=== PATIENT | female | born 1945 | race Caucasian/White ===

== ENCOUNTER 2019-09-11 05:01 | Inpatient (IN) ==
--- NOTE | 2019-08-22 14:50 | PAT Medication Instructions ---
Medication Instructions Date of Service August 22, 2019 Home Medications fenofibrate 160 mg PO QAM levothyroxine 50 mcg PO QAM lisinopril 40 mg PO QPM meloxicam 15 mg PO DAILY PRN multivitamin 1 tab PO QAM paroxetine HCl 20 mg PO QPM vitamins A,C,R-xbhv-hqvyze [PreserVision AREDS] 1 tab PO QPM ASK your surgeon for instructions meloxicam 15 mg PO DAILY PRN STOP taking 2 weeks before surgery If surgery is within 2 weeks, stop taking as soon as possible. vitamins A,C,J-nyov-kzufde [PreserVision AREDS] 1 tab PO QPM STOP taking 48 hours before surgery fenofibrate 160 mg PO QAM DO NOT take the morning of surgery multivitamin 1 tab PO QAM Take morning of surgery With a small sip of water, OTHERWISE NOTHING TO EAT OR DRINK AFTER MIDNIGHT: levothyroxine 50 mcg PO QAM Take evening before surgery lisinopril 40 mg PO QPM paroxetine HCl 20 mg PO QPM Other Notes If you have any questions please call us at [phone] or [phone] or [phone] or [phone]
--- NOTE | 2019-08-23 14:53 | Anesthesiology Consultation ---
Date of Service August 23, 2019 Assessment & Plan (1) Encounter for pre-operative examination: Patient has had issues in the past with memory difficulties after anesthesia, including sedation procedures like colonoscopies. Requesting as little anesthesia as possible, open to the idea of no sedation at all in combo with SAB. COVID Status: As of 08/21 nurse assessment, patient denies travel to endemic area, known exposure/sick contacts, or symptoms of COVID19. Preoperative COVID19 testing to be completed prior to surgery. Chart Review Chart Review: Acceptable Risk for Surgery and Patient seen in Pre Admission Testing Teaching & Discussion Instructed NPO after midnight before surgery, except medications with 15 cc of water. Medication instructions provided according to the PAT guidelines. History Surgery Operation Date: 09/11/19 09:40 Proposed Procedures p Left Anterior Total Hip Arthroplasty - Alhaji Yarbrough DO Height/Weight Height: 5 ft 2 in Weight: 65.8 kg Allergies Allergy/AdvReac Type Severity Reaction Status Date / Time No Known Allergies Allergy Unknown Verified 08/16/19 08:40 Medications Home Medications Medication Instructions Recorded Confirmed Last Taken fenofibrate 160 mg PO QAM 08/16/19 08/16/19 Unknown levothyroxine 50 mcg PO QAM 08/16/19 08/16/19 Unknown lisinopril 40 mg PO QPM 08/16/19 08/16/19 Unknown meloxicam 15 mg PO DAILY PRN 08/16/19 08/16/19 Unknown multivitamin 1 tab PO QAM 08/16/19 08/16/19 Unknown paroxetine HCl 20 mg PO QPM 08/16/19 08/16/19 Unknown vitamins A,C,K-vrrv-cclziq 1 tab PO QPM 08/16/19 08/16/19 Unknown [PreserVision AREDS] Past Medical History Medical History Anxiety Hyperlipidemia Hypertension Hypothyroidism Memory deficit Has occurred post-op and lasts for several months after. Word finding difficulty, lapses in memory. Mild heartburn Exercise / Class Metabolic Activity II 4-5 Yardwork/Stairs/Walk up hill (Denies CP or SOB with 1 FOS but not doing often 2/2 hip pain) Past Surgical History Surgical History H/O vaginal surgery History of anesthesia reaction MEMORY ISSUES POST OP PER PT History of colonoscopy History of revision of total replacement of left knee joint X 2-WOUND DEBRIDEMENTS History of total hip arthroplasty RIGHT-2008 History of total knee replacement LEFT 2-3 YRS AGO Past Anesthesia History No Family Hx of Anesthesia Complications Memory issues have been exacerbated by anesthesia. History of PONV No Hx of PONV and No Hx of Motion Sickness Social History Smoking Status: Never smoker Do You Dip or Chew Tobacco: No Hx Alcohol Use: Yes Alcohol type: wine alcohol intake frequency: a few times a week Hx Substance Use: No Review of Systems Pt denies any recent chest pain, shortness of breath, palpitations, cough, fever or URI. Physical Exam Vital Signs BP: 162/62 P: 70bpm SPO2: 98% RA T: 98.5 F R: 12 ENMT Mouth: + dentures and + edentulous Thyromental Distance: > or= 3.5 Finger Breadths (3.5) Mallampati Class: I Neck normal visual inspection; neck extension not limited Respiratory normal respiratory effort Auscultation: lungs clear to auscultation bilaterally Cardiovascular Rate/Rhythm: regular rate and regular rhythm Heart Sounds: no murmur Extremities: no edema Testing Laboratory Results 08/23/19 15:06 08/23/19 15:06 PT 11.3 Seconds (9.0-12.0) 08/23/19 15:06 INR 1.1 (0.9-1.1) 08/23/19 15:06 APTT 26.5 Seconds (21.0-31.0) 08/23/19 15:06 Hemoglobin A1c 5.6 % (4.5-5.6) 08/23/19 15:06 Urine Color Yellow 08/23/19 15:06 Urine Appearance Clear (Clear) 08/23/19 15:06 Urine pH 7.5 (4.5-7.5) 08/23/19 15:06 Ur Specific [place] 1.014 (1.000-1.030) 08/23/19 15:06 Urine Protein Negative (Negative) 08/23/19 15:06 Urine Glucose (UA) Negative (Negative) 08/23/19 15:06 Urine Ketones Negative (Negative) 08/23/19 15:06 Urine Nitrite Negative (Negative) 08/23/19 15:06 Ur Leukocyte Esterase Negative (Negative) 08/23/19 15:06 Blood Type A Negative 08/23/19 15:06 Antibody Screen POSITIVE A 08/23/19 15:06 *Spoke to Alba at [facility] re: anti-D antibody. Patient does not need any further workup or special instructions for DOS. Electrocardiogram Date: 08/23/19 Findings: + NSR @ (64bpm) Nonspecific ST abnormality. No significant change from 07/30/15. Chest X-Ray Date: 08/23/19 Findings: + NAD
--- NOTE | 2019-08-23 15:43 | XRay Report ---
XR chest Pre-admission PA/Lat HISTORY: Preop. COMPARISON: None. FINDINGS: The lungs are clear. Cardiac silhouette is normal in size. No pleural effusions. No pneumot horax. IMPRESSION: No acute process. ACT 112: Negative or not required by law. Electronically signed by: Chetan Real M.D. 08/23/2019 3:42 PM
[2019-08-23 16:02] LABS: Hematocrit (blood only) 38.7 % (37-47); Hemoglobin 12.5 g/dL (12.0-16.0); Mean Corpuscular Hgb Conc 32.3 g/dL (32-36); Mean Corpuscular Volume 92.8 fL (80-100); Mean Platelet Volume 10.8 fL (7.4-10.4); Platelet Count 240 K/uL (130-400); RDW Coefficient of Variation 12.9 % (11.5-14.5); RDW Standard Deviation 43.5 fL (36.4-46.3); Red Blood Count 4.17 M/uL (4.2-5.4); White Blood Count 4.91 K/uL (4.8-10.8)
[2019-08-23 16:09] LABS: Albumin Level 4.2 gm/dl (3.4-5.0); BUN Creatinine Ratio 17.2 (10-20); Calcium 9.7 mg/dl (8.5-10.1); Creatinine Clr Calc Pharmacy 41.6 ml/min; Est GFR (African American) 60.9; Est GFR (Non-African American) 52.5; Potassium 3.5 mmol/L (3.5-5.1)
[2019-08-23 16:13] LABS: Appearance Urine Clear (Clear); Bilirubin Urine Negative (Negative); Blood Urine Negative (Negative); Color Urine Yellow; Glucose Urine UA Negative (Negative); INR 1.1 (0.9-1.1); Ketones Urine Negative (Negative); Leukocyte Esterase Urine Negative (Negative); Nitrite Urine Negative (Negative); Partial Thromboplastin Ratio 0.9; Partial Thromboplastin Time 26.5 Seconds (21.0-31.0); Protein Urine Negative (Negative); Prothrombin Time 11.3 Seconds (9.0-12.0); Specific Gravity Urine 1.014 (1.000-1.030); Urobilinogen Urine Negative (Negative); pH Urine 7.5 (4.5-7.5)
[2019-08-23 16:21] LABS: Basophils # (auto) 0.02 K/uL (0-0.2); Basophils % (auto) 0.4 %; Eosinophils # (auto) 0.16 K/uL (0-0.5); Eosinophils % (auto) 3.3 %; Lymphocytes # (auto) 2.47 K/uL (1.2-3.4); Lymphocytes % (auto) 50.3 %; Monocytes # (auto) 0.35 K/uL (0.11-0.59); Monocytes % (auto) 7.1 %; Neutrophils # (auto) 1.91 K/uL (1.4-6.5); Neutrophils % (auto) 38.9 %
--- NOTE | 2019-08-24 06:06 | Electrocardiogram Report ---
Test Reason : Blood Pressure : / mmHG Vent. Rate : 064 BPM Atrial Rate : 064 BPM P-R Int : 158 ms QRS Dur : 086 ms QT Int : 426 ms P-R-T Axes : 067 068 043 degrees QTc Int : 439 ms Normal sinus rhythm Nonspecific ST abnormality When compared with ECG of 30-JUL-2015 14:27, No significant change was found Confirmed by Dane Germain ([id number]) on 08/24/2019 6:05:38 AM Referred By: Alhaji Yarbrough Confirmed By:Dane Germain
[2019-08-24 06:09] LABS: Estimated Average Glucose 114 mg/dl; Hemoglobin A1C 5.6 % (4.5-5.6)
--- NOTE | 2019-09-10 11:26 | History & Physical Report ---
Date of Service September 11, 2019 Assessment & Plan (1) Degenerative joint disease of left hip: I have indicated the patient for left anterior total hip replacement. The risks, benefits and complications of surgery were explained to the patient which include but not limited to infection, acute blood loss, DVT/PE, injury to nerves, vessels, bone, soft tissue, arthrofibrosis, chronic pain, failure of the prosthesis, hip dislocation, leg length discrepancy, need for additional surgery, cardiac and pulmonary events and . The patient wished to proceed with surgery and informed consent was obtained at this time. We will plan for 81mg ASA BID post-operatively for DVT prophylaxis. Upon discharge the patient will be discharged home with home health services. Appropriate clearances by PCP were obtained. History of Present Illness Chief Complaint: Left hip pain/djd Primary Care Provider: Sabino Anna MD The patient is a 73 year old female who presents with complaints of severe left hip pain and DJD. The patient has failed outpatient conservative treatments to this point which included NSAIDs, IA corticosteroid injection, PT and a home exercise program. The patient's pain and limited function have progressed to the point where they severely hinder their activities of daily living and they no longer tolerate exercise programs. They are requesting to proceed with total hip replacement surgery. Allergies Allergy/AdvReac Type Severity Reaction Status Date / Time No Known Allergies Allergy Unknown Verified 08/16/19 08:40 Home Medications Home Medications Medication Instructions Recorded Confirmed Type fenofibrate 160 mg PO QAM 08/16/19 08/16/19 History levothyroxine 50 mcg PO QAM 08/16/19 08/16/19 History lisinopril 40 mg PO QPM 08/16/19 08/16/19 History meloxicam 15 mg PO DAILY PRN 08/16/19 08/16/19 History multivitamin 1 tab PO QAM 08/16/19 08/16/19 History paroxetine HCl 20 mg PO QPM 08/16/19 08/16/19 History vitamins A,C,E-hrpr-wximhm 1 tab PO QPM 08/16/19 08/16/19 History [PreserVision AREDS] Past Med/Surg History Medical History Anxiety Hyperlipidemia Hypertension Hypothyroidism Memory deficit Has occurred post-op and lasts for several months after. Word finding difficulty, lapses in memory. Mild heartburn Surgical History H/O vaginal surgery History of anesthesia reaction MEMORY ISSUES POST OP PER PT History of colonoscopy History of revision of total replacement of left knee joint X 2-WOUND DEBRIDEMENTS History of total hip arthroplasty RIGHT-2007 History of total knee replacement LEFT 2-3 YRS AGO Social History Preferred Language: Micronesian Communication Ability: Effective Tentering Machine Feeder Required: No Beliefs That Will Affect Care: None Current Living Situation: Spouse Other Information That Helps Us Care for You: No Feels Safe at Home: Yes Safety Concerns: Feels Safe At This Time Smoking Status: Never smoker Do You Dip or Chew Tobacco: No ; Second Hand Exposure: No ; Hx Alcohol Use: Yes Alcohol type: wine Hx Substance Use: No Review of Systems Review of Systems: All systems reviewed & are unremarkable except as noted in HPI & below Constitutional: as per Subjective / HPI Physical Exam Physical Exam: LLE NVSI +EHL/FHL/TA/GS SILT grossly, +2 DP pulse, compartments soft NT, limited painful ROM of the hip, antalgic gait. Constitutional: WD/WN, vitals as above Eyes: PERRL, conjunctivae normal, anicteric sclerae ENMT: external ear and nose normal, oropharynx normal Neck: trachea midline, no thyromegaly Respiratory: normal respiratory effort, lungs clear to auscultation Cardiovascular: RRR, no murmur, no edema Gastrointestinal (Abdomen): normal bowel sounds, soft, nontender, no hepatosplenomegaly Musculoskeletal: no cyanosis or clubbing, extremities motor strength 5/5 Skin: no rashes, warm and dry Neurologic: patellar DTR's 2+ bilat, sensation intact Psychiatric: A+Ox3, euthymic affect Lymphatic: no cervical or axillary lymphadenopathy Results & Data Results & Data ([place]) Diagnostic Findings Multiple views of the hip demonstrates severe DJD with complete loss of the joint space. +osteophytes, +sclerosis, +subchondral cysts.
[2019-09-11] MEDS ORDERED: dexAMETHasone 4 MG TAB PO SCH (06:00)
[2019-09-11] MEDS ORDERED: ROPIVACAINE 0.5% HCL/PF 150 MG, BUPIVACAINE 0.5% MPF 30 ML, EPINEPHrine 30MG/30ML (OR U... INSTIL SCH (06:00)
[2019-09-11] MEDS ORDERED: CEFAZOLIN 1000MG 1,000 MG/7.5 ML SYR IV SCH (06:00)
[2019-09-11] MEDS ORDERED: CeleBREX 200 MG CAP PO SCH (06:00)
[2019-09-11] MEDS ORDERED: ACETAMINOPHEN 500 MG TAB PO SCH (06:00)
[2019-09-11] MEDS ORDERED: FAMOTIDINE 20 MG TAB PO SCH (06:00)
[2019-09-11] MEDS ORDERED: LR 500ML BOLUS, THEN 15ML/HR IV SCH (06:00)
[2019-09-11] MEDS ORDERED: TRANEXAMIC ACID / 0.7% NACL 1,000 MG/100 ML BAG IV SCH ×2 (06:00)
[2019-09-11] MEDS ORDERED: METOCLOPRAMIDE HCL 10 MG TABLET PO SCH (06:00)
[2019-09-11] MEDS ORDERED: BUPIVACAINE 0.5 % 5 MG/1 ML PF 10ML VIAL ONE (06:32)
[2019-09-11] MEDS ORDERED: MIDAZOLAM HCL 1 MG/ML 2ML VIAL ONE (06:40)
[2019-09-11] MEDS ORDERED: fentaNYL citrate 100 MCG/2 ML VIAL ONE (06:40)
--- NOTE | 2019-09-11 06:44 | History & Physical Bridge Note ---
Date of Service September 11, 2019 History & Physical Bridge Note I have examined the patient, reviewed the History & Physical and in the interval since the performance of the History & Physical I have noted the following changes of clinical significance: no changes noted
[2019-09-11] MEDS ORDERED: BACITRACIN INJ 50,000 UNIT VIAL ONE (07:00)
[2019-09-11] MEDS ORDERED: ORTHO JOINT ANESTHETIC ONE (07:00)
[2019-09-11] MEDS ORDERED: ONDANSETRON INJ 2 MG/ML 2 ML VIAL IV PRN ×2 (07:29→09:58)
[2019-09-11] MEDS ORDERED: HYDROmorphone INJ 1 MG/ML SYRINGE IV PRN (07:29)
[2019-09-11] MEDS ORDERED: fentaNYL citrate 100 MCG/2 ML VIAL IV PRN (07:29)
[2019-09-11] MEDS ORDERED: ATROPINE SULFATE 0.1 MG/ML 10ML SYR IV PRN (07:29)
[2019-09-11] MEDS ORDERED: ePHEDrine sulfate 50 MG/ML AMP IV PRN (07:29)
[2019-09-11] MEDS ORDERED: DEXAMETHASONE SOD INJ 4 MG/ML VIAL ONE (07:47)
[2019-09-11] MEDS ORDERED: ONDANSETRON INJ 2 MG/ML 2 ML VIAL ONE (07:47)
--- NOTE | 2019-09-11 08:52 | Fluoroscopy Report ---
FL hip LT 1V CLINICAL HISTORY: LT ANTERIOR TOTAL COMPARISON STUDY: Pelvis radiograph August 26, 2007. FLUOROSCOPY TIME: 49 seconds. FLUOROSCOPIC IMAGES: 2 FINDINGS: These images demonstrate anatomic alignment of the total left arthroplasty. The hardware is intact. No fracture is visualized. Right hip arthroplasty is noted. IMPRESSION: Fluoroscopy provided during total left hip arthroplasty. ACT 112: Negative or not required by law. Electronically signed by: Sharath Vela M.D. 09/11/2019 8:50 AM
--- NOTE | 2019-09-11 08:52 | Post Operative Brief Note ---
Immediate Post Op Note v1 Date of Surgery September 11, 2019 Pre & Post Diagnosis Operation Date: 09/11/19 07:00 Pre-Op Diagnosis: Left Hip Degenerative Joint Disease Post-Op Diagnosis: Left Hip Degenerative Joint Disease I identified the patient and participated in the time-out.: Yes Procedure Operation Date: 09/11/19 07:00 Actual Procedures p Left Anterior Total Hip Arthroplasty(Left) - Alhaji Yarbrough DO Surgeon Alhaji Yarbrough DO Proof Load Mechanic Brendon Logan Estimated Blood Loss 135 Findings Consistent with Post-Op Diagnosis Fluids 1100 cc LR Specimens femoral head Anesthesia Type Spinal MAC Complications none Disposition Disposition: Recovery Room Overlapping Procedure I was present for: the critical portions of procedure. I was immediately available: during the entire case. Back up surgeon: was not required during procedure.
--- NOTE | 2019-09-11 08:54 | Operative Report ---
Post Operative Report Pre & Post Diagnosis Operation Date: 09/11/19 07:00 Pre-Op Diagnosis: Left Hip Degenerative Joint Disease Post-Op Diagnosis: Left Hip Degenerative Joint Disease I identified the patient and participated in the time-out.: Yes Procedure Operation Date: 09/11/19 07:00 Actual Procedures p Left Anterior Total Hip Arthroplasty(Left) - Alhaji Yarbrough DO Surgeon Alhaji Yarbrough DO Television Engineer Brendon Logan Estimated Blood Loss 135 Findings Consistent with Post-Op Diagnosis Fluids 1100 cc LR Specimens femoral head Anesthesia Type Spinal MAC Complications none Disposition Disposition: Recovery Room Indications The patient is a 73-year-old female who presents with severe progressive left hip DJD who has failed outpatient conservative treatments. I indicated the patient for a anterior total hip replacement and the risks and benefits were explained in detail which include but not limited to infection, bleeding, blood clot, damage to surrounding bone, nerves, vessels, soft tissue, hip dislocation, failure of the prosthesis, leg length discrepancy, need for additional surgery and . The patient agreed to proceed with replacement of the hip and informed consent was obtained. Appropriate clearances were obtained. Description of Procedure COMPONENTS USED: [employer]2gethe[employer] hip system: Acetabulum size 48, femur size 2 high offset, femoral head 32-3, liner 4832, acetabular screw 251. DESCRIPTION OF PROCEDURE: Following satisfactory spinal anesthesia, the patient was placed supine on the OR table. The right leg was placed in the well leg cohn and the left leg in the traction device. The left leg was prepared with ChloraPrep and draped sterilely. A surgical timeout was performed, patient identified and site mariza verified. Appropriate antibiotics were given. A standard anterior approach in the interval between the sartorius and tensor muscles was performed. Dissection was carried down through subcutaneous tissues. Electrocautery was utilized for hemostasis. Circumflex femoral vessels were identified, tied and ligated. The anterior capsular fat pad was removed and the capsulotomy was performed revealing the arthritic femoral neck and head. A femoral neck cut was made with reciprocating saw and the bone fragments removed. The acetabular self-retraining retractor was placed. Acetabular reaming was completed under fluoroscopic guidance, a 48 shell was impacted into an anatomic position and secured with a dome screw. Local anesthetic was placed and following irrigation, the polyethylene liner was placed. The femur was placed into position of external rotation, extension and adduction. Femoral canal was prepared up to the size to high offset. Trial reduction with a -3 neck length head showed good soft tissue tension, leg lengths restored, and good fit and fill of the proximal canal using fluoroscopic landmarks. The hip was dislocated. The trial component was removed. The final implant was placed. The hip was irrigated with sterile saline solution and reduced. A Betadine soak was performed. After 3 minutes, the hip was once more irrigated with copious sterile saline solution with bacitracin. Steffany-incisional soft tissue was injected utilizing [place] [employer] which includes a combination of Ropivicaine 0.5% 150mg, Bupivicaine 0.5%/Epinephrine 1:200,000 30ml, Toradol 30mg, Dexamethasone 4mg, Ketamine 10mg, Clonidine 100mcg and NSS 30ml solution. The capsule was then closed with 1-0 Vicryl interrupted figure of eight sutures. The fascia was closed with a running suture of #1 Vicryl, the subcutaneous tissues with 2-0 Vicryl and the skin was closed with najma. A sterile dry dressing was applied which included Monica incisional VAC. The patient tolerated the procedure well and was transported to PACU in stable condition. Due to the complex nature of the procedure, the entire surgery was performed with the operational assistance of Brendon Del Rio PA-C. The evaluation assistant, under direct supervision, was involved in the actual performance of all aspects of the surgical procedure including patient positioning, hemostasis, tissue retraction, instrument management and wound closure. I attest to the content of the Intraoperative Record and any orders documented therein. Any exceptions are noted below.
--- NOTE | 2019-09-11 09:49 | XRay Report ---
XR hip 1V LT w pelvis CLINICAL HISTORY: Total left hip arthroplasty. COMPARISON: Pelvis radiograph August 26, 2007. FINDINGS: Alignment of the total left hip arthroplasty is anatomic. There is no fracture or unexpect ed radiopaque foreign body. There is an acetabular screw. Skin najma are present. Right hip arthrop lasty is noted. IMPRESSION: Expected findings following total left hip arthroplasty. ACT 112: Negative or not required by law. Electronically signed by: Sharath Vela M.D. 09/11/2019 9:48 AM
[2019-09-11] MEDS ORDERED: NALOXONE HCL 0.4 MG/1 ML VIAL/CARP IV PRN (09:58)
[2019-09-11] MEDS ORDERED: METOCLOPRAMIDE HCL INJ 5 MG/ML 2 ML VIAL IV PRN (09:58)
[2019-09-11] MEDS ORDERED: bisacodyL 10 MG SUPP PR PRN (09:58)
[2019-09-11] MEDS ORDERED: MAGNESIUM HYDROXIDE SUSP 30 ML UDC PO PRN (09:58)
[2019-09-11] MEDS ORDERED: HYDROmorphone INJ 0.5 MG/0.5 ML SYR IV PRN (09:58)
--- NOTE | 2019-09-11 10:13 | Anesthesiology Progress Note ---
Date of Service September 11, 2019 Anesthesia Post Procedure Vital Signs Vital Signs: Temp Pulse Pulse Resp BP Pulse Ox 09/11/19 09:30 36.4 C L 62 16 132/60 96 09/11/19 09:20 58 L 16 126/51 L 100 09/11/19 09:11 36.2 C L 69 16 117/50 L 96 09/11/19 05:36 36.8 C 56 L 18 183/66 H 99 Transfer of Care Handoff Completed per policy Notes Mental Status: alert / awake / arousable and participated in evaluation Patient Amnestic to Procedure: Yes Nausea / Vomiting: adequately controlled Pain: adequately controlled Airway Patency, RR, SpO2: stable & adequate BP & HR: stable & adequate Hydration State: stable & adequate Neuraxial Anesthesia: was administered and sensory block is resolving Anesthetic Complications: no major complications apparent and Pt Satisfied with anesthetic care
[2019-09-11] MEDS: SODIUM CHLORIDE 0.9% 1000ML 1,000 ML IV SCH ×2 (10:26→20:34)
[2019-09-11] MEDS: MULTIVITAMIN TAB PO SCH (12:42)
[2019-09-11] MEDS: KETOROLAC TROMETHAMINE 15 MG/ML VIAL IV SCH ×3 (12:44→23:48)
[2019-09-11] MEDS: ACETAMINOPHEN 500 MG TAB PO SCH ×2 (12:44→22:08)
[2019-09-11] MEDS: OXYCODONE HCL IR 5 MG TAB (IMMEDIATE RELEASE) PO PRN (13:45)
[2019-09-11] MEDS: CEFAZOLIN 1000MG 1,000 MG/7.5 ML SYR IV SCH ×2 (13:59→22:08)
--- NOTE | 2019-09-11 15:33 | Orthopedic Progress Note ---
Date of Service September 11, 2019 Assessment & Plan (1) Degenerative joint disease of left hip: Status post left anterior total hip arthroplasty -Ancef x24 -DVT prophylaxis: SCDs, teds, 81 mg ASA twice daily -Weight-bear as tolerates left lower extremity -PT/OT -Postoperative x-ray demonstrates a well aligned well fixed total hip prosthesis without out evidence of fracture dislocation. -A.m. labs -DC planning Admission and Anticipated Discharge Date Admission Date: September 11, 2019 Subjective Post Operative Progress Note Patient seen sitting up in bed, comfortable, denies complaints, pain well controlled, no acute issues. Still feeling effects of spinal anesthesia. Review of Systems Review of Systems: All systems reviewed & are unremarkable except as noted in HPI & below Constitutional: as per Subjective / HPI Physical Exam Physical Exam: Left lower extremity physical exam limited secondary to spinal anesthesia, +2 dorsalis pedis pulse, compartment soft nontender, dressings clean dry and intact. Constitutional: WD/WN, vitals as above Results & Data ([place]) Vital Signs (Past 12 Hours) Vital Signs Temp Pulse Pulse Resp BP Pulse Ox 09/11/19 12:48 81 18 150/67 H 100 09/11/19 11:58 36.3 C L 77 22 160/67 H 100 09/11/19 10:53 36.4 C L 55 L 16 126/61 98 09/11/19 10:20 36.4 C L 61 18 139/60 97 09/11/19 09:45 58 L 18 145/67 H 97 09/11/19 09:30 36.4 C L 62 16 132/60 96 09/11/19 09:20 58 L 16 126/51 L 100 09/11/19 09:11 36.2 C L 69 16 117/50 L 96 09/11/19 05:36 36.8 C 56 L 18 183/66 H 99
[2019-09-11] MEDS: DOCUSATE SODIUM 100 MG CAP PO SCH (20:36)
[2019-09-11] MEDS ORDERED: PARoxetine HCL 20 MG TAB PO SCH (21:00)
[2019-09-11] MEDS ORDERED: lisinopriL 40 MG TAB PO SCH (21:00)
[2019-09-11] MEDS ORDERED: SENNA 8.6 MG TAB PO SCH (21:00)
[2019-09-12] MEDS: OXYCODONE HCL IR 5 MG TAB (IMMEDIATE RELEASE) PO PRN (00:24)
[2019-09-12] MEDS: KETOROLAC TROMETHAMINE 15 MG/ML VIAL IV SCH (05:38)
[2019-09-12] MEDS: ACETAMINOPHEN 500 MG TAB PO SCH ×2 (05:39→13:22)
[2019-09-12] MEDS ORDERED: LEVOTHYROXINE SODIUM 50 MCG TABLET PO SCH (06:30)
[2019-09-12 06:51] LABS: Basophils # (auto) 0.01 K/uL (0-0.2); Basophils % (auto) 0.1 %; Hematocrit (blood only) 26.3 % (37-47); Hemoglobin 8.9 g/dL (12.0-16.0); Immature Granulocytes # (auto) 0.02 K/uL (0.00-0.02); Immature Granulocytes % (auto) 0.2 %; Lymphocytes # (auto) 1.54 K/uL (1.2-3.4); Lymphocytes % (auto) 18.6 %; Mean Corpuscular Hemoglobin 30.6 pg (25-34); Mean Corpuscular Hgb Conc 33.8 g/dL (32-36); Mean Corpuscular Volume 90.4 fL (80-100); Mean Platelet Volume 10.1 fL (7.4-10.4); Monocytes # (auto) 0.79 K/uL (0.11-0.59); Monocytes % (auto) 9.6 %; Neutrophils % (auto) 71.5 %; Platelet Count 172 K/uL (130-400); RDW Coefficient of Variation 12.7 % (11.5-14.5); RDW Standard Deviation 41.9 fL (36.4-46.3); Red Blood Count 2.91 M/uL (4.2-5.4); White Blood Count 8.26 K/uL (4.8-10.8)
[2019-09-12 07:30] LABS: BUN Creatinine Ratio 26.1 (10-20); Calcium 7.9 mg/dl (8.5-10.1); Creatinine Clr Calc Pharmacy 45.3 ml/min; Est GFR (African American) 67.9; Est GFR (Non-African American) 58.6; Potassium 3.8 mmol/L (3.5-5.1)
--- NOTE | 2019-09-12 07:32 | Orthopedic Progress Note ---
Date of Service September 12, 2019 Assessment & Plan (1) Degenerative joint disease of left hip: Status post left anterior total hip arthroplasty POD#1 -Ancef x24 -DVT prophylaxis: SCDs, teds, 81 mg ASA twice daily -Weight-bear as tolerates left lower extremity -PT/OT -Postoperative x-ray demonstrates a well aligned well fixed total hip prosthesis without out evidence of fracture dislocation. -A.m. labs, see above, hgb 8.9 -DC planning - home with Admission and Anticipated Discharge Date Admission Date: September 11, 2019 Subjective Post Operative Progress Note Patient seen sitting up in bed, comfortable, denies complaints, pain well controlled, no acute issues. Denies F/C/N/V/SOB/CP. Review of Systems Review of Systems: All systems reviewed & are unremarkable except as noted in HPI & below Constitutional: as per Subjective / HPI Physical Exam Physical Exam: LLE NVSI +EHL/FHL/TA/GS SILT grossly, +2 DP pulse, compartments soft NT, dressing cdi. Constitutional: WD/WN, vitals as above Results & Data ([facility]) Vital Signs (Past 12 Hours) Vital Signs Temp Pulse Pulse Resp BP Pulse Ox 09/12/19 07:21 36.7 C 66 16 135/61 96 09/12/19 03:25 37.0 C 61 15 131/68 93 09/11/19 23:18 36.8 C 69 16 136/62 98 09/11/19 20:32 74 122/56 L Laboratory Results 09/12/19 09/12/19 09/11/19 Range/Units 06:15 06:15 05:41 WBC 8.26 (4.8-10.8) K/uL RBC 2.91 L (4.2-5.4) M/uL Hgb 8.9 L (12.0-16.0) g/dL Hct 26.3 L (37-47) % MCV 90.4 (80-100) fL MCH 30.6 (25-34) pg MCHC 33.8 (32-36) g/dL RDW Std Deviation 41.9 (36.4-46.3) fL RDW Coeff of Joe 12.7 (11.5-14.5) % Plt Count 172 (130-400) K/uL MPV 10.1 (7.4-10.4) fL Immature Gran % (Auto) 0.2 % Neut % (Auto) 71.5 % Lymph % (Auto) 18.6 % [place] % (Auto) 9.6 % Eos % (Auto) 0.0 % Baso % (Auto) 0.1 % Neut # (Auto) 5.90 (1.4-6.5) K/uL Lymph # (Auto) 1.54 (1.2-3.4) K/uL [place] # (Auto) 0.79 H (0.11-0.59) K/uL Eos # (Auto) 0.00 (0-0.5) K/uL Baso # (Auto) 0.01 (0-0.2) K/uL Immature Gran # (Auto) 0.02 (0.00-0.02) K/uL Sodium 141 (136-145) mmol/L Potassium 3.8 (3.5-5.1) mmol/L Chloride 111 H (98-107) mmol/L Carbon Dioxide 24 (21-32) mmol/L Anion Gap 6.0 (3-11) BUN 25 H (7-18) mg/dl Creatinine 0.95 (0.6-1.2) mg/dl Est Cr Clr Drug Dosing 45.3 ml/min Est GFR ( Amer) 67.9 Est GFR (Non-Af Amer) 58.6 BUN/Creatinine Ratio 26.1 H (10-20) Glucose 98 (70-99) mg/dl Calcium 7.9 L (8.5-10.1) mg/dl Blood Type A Negative Antibody Screen POSITIVE A Antibody Identification Anti-D Antibody ID Comment Crossmatch See Detail
[2019-09-12] MEDS: DOCUSATE SODIUM 100 MG CAP PO SCH (07:34)
[2019-09-12] MEDS: MULTIVITAMIN TAB PO SCH (07:34)
--- NOTE | 2019-09-12 07:43 | Anesthesiology Progress Note ---
Date of Service September 12, 2019 Anesthesia Post Procedure Vital Signs Vital Signs: Temp Pulse Pulse Resp BP Pulse Ox 09/12/19 07:21 36.7 C 66 16 135/61 96 09/12/19 03:25 37.0 C 61 15 131/68 93 09/11/19 23:18 36.8 C 69 16 136/62 98 09/11/19 20:32 74 122/56 L 09/11/19 15:38 36.8 C 85 18 128/63 95 09/11/19 12:48 81 18 150/67 H 100 09/11/19 11:58 36.3 C L 77 22 160/67 H 100 09/11/19 10:53 36.4 C L 55 L 16 126/61 98 09/11/19 10:20 36.4 C L 61 18 139/60 97 09/11/19 09:45 58 L 18 145/67 H 97 09/11/19 09:30 36.4 C L 62 16 132/60 96 09/11/19 09:20 58 L 16 126/51 L 100 09/11/19 09:11 36.2 C L 69 16 117/50 L 96 Pain Intensity Left Leg: Pain Intensity: 0 Notes Mental Status: alert / awake / arousable and participated in evaluation Patient Amnestic to Procedure: Yes Nausea / Vomiting: adequately controlled Pain: adequately controlled Airway Patency, RR, SpO2: stable & adequate BP & HR: stable & adequate Hydration State: stable & adequate Neuraxial Anesthesia: was administered and sensory block resolved Anesthetic Complications: no major complications apparent
[2019-09-12] MEDS ORDERED: FENOFIBRATE NANOCRYSTALLIZED 145 MG TABLET PO SCH (09:00)
[2019-09-12] MEDS ORDERED: ASPIRIN 81 MG ECTAB PO SCH (09:00)
--- NOTE | 2019-09-12 11:48 | Discharge Summary ---
Date of Service September 12, 2019 Admission HPI Per Admitting Provider The patient is a 73 year old female who presents with complaints of severe left hip pain and DJD. The patient has failed outpatient conservative treatments to this point which included NSAIDs, IA corticosteroid injection, PT and a home exercise program. The patient's pain and limited function have progressed to the point where they severely hinder their activities of daily living and they no longer tolerate exercise programs. They are requesting to proceed with total hip replacement surgery. Principal Diagnosis Left anterior total hip replacement Discharge Exam LLE NVSI +EHL/FHL/TA/GS SILT grossly, +2 DP pulse, compartments soft NT, dressing cdi. Constitutional WD/WN, vitals as above Discharge Data Allergies Allergy/AdvReac Type Severity Reaction Status Date / Time No Known Allergies Allergy Unknown Verified 09/11/19 05:50 Consultations 09/12/19 08:00 Consult Case Management - Discharge Planning Routine Procedures Performed Operation Date: 09/11/19 07:00 Actual Procedures p Left Anterior Total Hip Arthroplasty(Left) - Alhaji Yarbrough DO Ordered Studies 09/11/19 07:00 FL fluoroscopy <1hr Routine FL hip LT 1V Routine Hospital Course (1) Degenerative joint disease of left hip: The patient is a 73 -year-old male who presents with long standing history of severe left hip DJD and failed outpatient conservative treatments. The patient's symptoms have progressed to the point where it has been difficult to perform even normal activities of daily living. I indicated the patient for a left anterior total hip arthroplasty, the risks, benefits and complications of the procedure include but not limited to infection, bleeding, damage to bone, nerves, vessels, surrounding soft tissue, may develop blood clots, loss of function, leg length discrepancy, dislocation, failure of the components, loosening of the components, the need for additional surgery and . The patient wished to proceed with surgery at this time and informed consent was obtained. Hospital Course: On 09/11/19 the patient was taken to the operating room, adequate anesthesia administered and underwent a left anterior total hip arthroplasty. The patient tolerated the procedure well and was taken to the PACU in stable condition. Post-operatively the patient was started on a DVT ppx medication and given appropriate IV antibiotics. Consults were placed to physical therapy, occupational therapy and case management. On POD#1, the patient did well overnight and their pain was well controlled. Labs were drawn and the Hgb was 8.9. The patient progressed well with PT. Dressings were changed at this time and the incision was clean, dry and intact. The patients hospital stay was relatively uneventful and they were deemed stable by the orthopedic team and consultants to be discharged home with HH on 09/12/19. Discharge Instructions: Upon discharge the patient may weight bear as tolerates through their operative extremity. They were instructed to keep the incision clean and dry at all times. The patient may shower but should not submerge the incision, avoid bathing, pools and hot tubes. The patient was given a script for pain medication and should take as instructed. The patient was given a script for DVT ppx 81mg ASA BID and should take as directed. The patient was instructed to not drive or travel for long distances until cleared to do so. If the patient develops any symptoms of fevers, chills, nausea, vomiting, increased redness, swelling, pain or drainage from the surgical site, they should notify the office and/or proceed to the nearest emergency room. The patient should follow up in 10-14 days after surgery for their routine post-operative follow-up appointment and should call the office to confirm the date and time. Status post left anterior total hip arthroplasty POD#1 -Ancef x24 -DVT prophylaxis: SCDs, teds, 81 mg ASA twice daily -Weight-bear as tolerates left lower extremity -PT/OT -Postoperative x-ray demonstrates a well aligned well fixed total hip prosthesis without out evidence of fracture dislocation. -A.m. labs, see above, hgb 8.9 -DC planning - home with Total Time Total Time Spent Total Time Spent (In Minutes): 30 Discharge Plan Discharge Items Patient Disposition: Home - Home Health Services Reason For Visit: Unilateral Primary Osteoarthritis, Left Hip Discharge Diagnosis: Left anterior total hip replacement -Left hip djd Condition on Discharge: Good Activity: Per Instructions section Lifting: Wait until after follow-up appointment Bathing: Keep incision dry Bathing Comment: No bathing, pools or hot tubs. Sexual Activity: Wait until after follow-up appointment Exercise/Sports: Wait until after follow-up appointment Driving/Machine Use: No driving. Weightbearing: Full weightbearing Non-emergency contact: Primary Care Provider and Surgeon Call non-emergency contact if: you have any medication questions, your symptoms worsen, your pain is not controlled, your pain is worsening, your pain is unusual for you, your pain is concerning for you, you have a fever, your temperature is above 101, your wound has increased redness, your wound has increased drainage and your wound pain has increased Follow-up/Referrals: Sabino Anna MD [Primary Care Provider] - Diet: Regular Addtl Attending Provider Instructions: ACTIVITY RECOMMENDATIONS: SELF CARE INSTRUCTIONS AFTER TOTAL HIP REPLACEMENT : Direct Anterior Approach Until the incision and soft tissues around your hip have healed, there is a possibility that the hip prosthesis could dislocate. A. Hip flexion ( Up & Down out of chair or steps ) may be difficult. This is normal. B. Numbness in front of the thigh is also normal for a few weeks. C. Use hand rails when walking on stairs. D. Wear low heeled shoes with non-slip soles. E. Be sure that your floors are free of things that could trip you - throw rugs, electrical cords, small objects. Avoid wet and waxed floors, especially with crutches and canes. F. Try to walk several times a day with rest periods between. G. Continue with all the exercises taught to you in the hospital. Again, make walking a part of your daily routine. SPECIAL CARE INSTRUCTIONS: VERY IMPORTANT TO READ AND REVIEW A. You may still be at risk for phlebitis and blood clots. 1. Wear surgical stockings (SALVATORE hose) for 2 weeks after surgery to improve circulation and reduce swelling. 2. Take Aspirin 81mg twice daily for 4 weeks or as directed by your doctor. This is your blood thinner. 3. High risk patients may be prescribed a stronger blood thinner if necessary. 4. If you are on Coumadin normally, your family doctor/open hearth door liner should monitor your blood work. Expect a phone call the day of or the day after bloodwork is drawn to adjust your dosage. B. You must take antibiotics before having dental work, bladder, bowel and other surgery. Your doctor will provide you with a permanent card to carry describing precautions. C. Call [facility] if you have a fever, redness or swelling around the incision, cloudy drainage from incision, or sudden increase in pain in your hip, not relieved by your regular pain medication. D. Please call the office at if you have any concerns or questions about your operation or recovery. * YOU MAY SHOWER, NO TUB BATHS UNTIL CLEARED BY YOUR DOCTOR. - Keep an extra close eye on the top portion of your incision. Be sure to keep clean & dry. * WEAR SALVATORE HOSE 20 HOURS PER DAY FOR 2 WEEKS. * YOU MAY PROGRESS FROM A WALKER, TO A CANE, TO INDEPENDENT AT YOUR OWN PACE. * MOST PATIENTS WILL HAVE HOME NURSING FOR THERAPY. IF YOU DECIDE TO DO OUTPATIENT PHYSICAL THERAPY, PLEASE SCHEDULE THIS 3 TIMES PER WEEK. *PREVENA incisional vac is a special dressing covering your incision. This dressing provides a sterile dry environment while you are healing. The dressing is to be left in place for 7 days post-operatively. Your home nurse or surgeon will remove. If you develop any redness or blisters or have any questions notify your surgeon immediately. FOLLOW UP VISIT: If appointment is not already scheduled: Please call [facility] to make a follow-up appointment for 2 weeks after your surgery at . Pending Studies at Discharge: No Stand-Alone Forms: My [facility] [place], Smoking Cessation Medications and DC Order Prescriptions: New celecoxib [Celebrex] 200 mg Capsule 200 mg PO BID PRN (Reason: pain/inflammation) Qty: 28 RF: 0 aspirin 81 mg Tablet,Delayed Release (Dr/Ec) 81 mg PO BID Qty: 90 RF: 0 acetaminophen 500 mg Tablet 1,000 mg PO Q8 PRN (Reason: pain/fevers) Qty: 90 RF: 0 oxycodone 5 mg Tablet 5 mg PO Q6H MDD 4 PRN (Reason: pain) Qty: 30 RF: 0 sennosides [Senokot] 8.6 mg Tablet 17.2 mg PO HS PRN (Reason: constipation) Qty: 28 RF: 0 Continued multivitamin Tablet 1 tab PO QAM RF: 0 paroxetine HCl 20 mg Tablet 20 mg PO QPM RF: 0 lisinopril 40 mg Tablet 40 mg PO QPM RF: 0 fenofibrate 160 mg Tablet 160 mg PO QAM RF: 0 levothyroxine 50 mcg Capsule 50 mcg PO QAM RF: 0 PreserVision AREDS [id number] Tablet 1 tab PO QPM RF: 0 Discontinued meloxicam 15 mg Tablet 15 mg PO DAILY PRN (Reason: Pain) RF: 0 Discharge Orders: Discharge Order (Routine); Ordered 09/12/19 Ordered By: Alhaji Yarbrough Admission Data Admit Date/Time: 09/11/19 09:13 Attending Provider: Alhaji Yarbrough Admit Provider: Alhaji Yarbrough Primary Care Provider: Sabino Anna Other Interventions: Discharge Summary Assessment (RN) Last Done: 09/12/19 12:05 DC Date/Time DO NOT enter until pt leaves facility: 09/12/19 14:00
[2019-09-12] MEDS ORDERED: CeleBREX 200 MG CAP PO SCH (21:00)
== END 2019-09-12 14:00 | disposition home health service (06) | DRG 470 ==
LOC: ASU 05:01 → 3E 09:13